=== PATIENT | female | born 1980 | race Caucasian/White ===

== ENCOUNTER 2016-12-24 20:37 | Inpatient (IN) | payer BC ==
--- NOTE | ~2016-12-24 | DS ---
Discharge Summary [place] [address] [facility] [place]. [address] NAME: ROBI DSOUZA : 76 STATUS : ADM IN PAT#: [id number] AGE: 36 ADM/REG DATE : 12/24/16 MR#: [id number] REPORT SERV DATE: 12/28/16 DICTATED BY: SAWYER DOLL DATE: 12/28/16 REPORT STATUS : Draft TRANSCRIBED BY: MODL DATE: 12/28/16 ADMISSION DATE: 12/24/2016 DISCHARGE DATE: 12/28/2016 FINAL HOSPITAL DIAGNOSIS: 1. Crohn's disease. 2. Clostridium difficile, recurrent. CONSULTATIONS: GI. PROCEDURES: CT scan of the abdomen and pelvis done on the showing abnormal small bowel pattern with several segments of dilated fluid-filled small bowel, lower mid abdomen and upper pelvis with transition zone to smaller caliber distal ileum, right lower quadrant abdomen, surrounding infiltration and small bowel mesentery suggesting partial obstruction in the area of inflammatory small bowel disease with possible small-bowel stricture possibly related to the patient's known Crohn's disease. CURRENT PHYSICAL FINDINGS AND HISTORY OF PRESENT ILLNESS: Please see initial H and P by Dr. Henson. In brief, the patient is a 36-year-old female with Crohn's disease, presented with complaint of abdominal pain and diarrhea. Vitals at the time of admission, Blood pressure was 132/60. She has had no temperature during her hospital stay. Heart rates have been in the 60s to 70s. LAB WORK: She presented with a procalcitonin of less than 0.05. BNP was unremarkable. LFTs were unremarkable. Lipase was 131. C-reactive protein was 13.9. Lactate was 0.9 and 0.3 on the and . HCG was negative. Initial white count was 14,000. Urinalysis was unremarkable. Stool culture was requested on the . It was positive for C. difficile. HOSPITAL COURSE: The patient was admitted. It was initially felt she had an exacerbation of her Crohn's disease. GI was consulted. Serial lab was ordered. Home medications were reviewed and ordered appropriately. She was placed on electrolyte protocol. She was started on a clear liquid diet and Solu-Medrol was initiated. IV fluids were titrated and serial labs were followed. When the patient was seen on the by GI, additional lab work including inflammatory markers was requested. On the evening of the , her stool sample came back positive C. difficile. She has had this in the past. She was started on antibiotics vancomycin p.o. The following day, her Solu-Medrol was discontinued and her diet was advanced. Her IV fluids were stopped on the . On the , the patient was re- evaluated. She was having 2 to 3 bowel movements a day and she was tolerating p.o. well. She was having no abdominal pain, nausea, vomiting and she was felt stable for discharge. DISPOSITION: Pending approval by GI and arrangement of followup with them. She will be discharged home. We will clarify if she should be on a prolonged taper given her recurrent immunosuppression of the p.o. vancomycin. Appropriate prescription will be given. She will continue Imuran 250 one per day; baclofen 10 t.i.d., mesalamine 1.2 g tablets 4.8 g with supper; Protonix 40 one per day; Carafate 1 g b.i.d.; hydrochlorothiazide 25, Xanax 1 mg, and hydrocodone 10/325 q.6h. Phenergan p.r.n., and ProAir inhaler. She will not resume her Discharge Summary [address] [address] NAME: ROBI DSOUZA : 76 STATUS : ADM IN PAT#: [id number] AGE: 36 ADM/REG DATE : 12/24/16 MR#: [id number] REPORT SERV DATE: 12/28/16 DICTATED BY: SAWYER DOLL DATE: 12/28/16 REPORT STATUS : Draft TRANSCRIBED BY: MODL DATE: 12/28/16 Entocort or Humira which are currently on hold. TLF/MODL Sawyer Doll M.D. / [id number] CC: Noelle Matthew M.D.
--- NOTE | ~2016-12-24 | HP ---
History And Physical [address] [address] NAME: ROBI DSOUZA : 76 STATUS : ADM IN PAT#: [id number] AGE: 36 ADM/REG DATE : 12/24/16 MR#: [id number] REPORT SERV DATE: 12/25/16 DICTATED BY: JUWAN FRANCO DATE: 12/24/16 REPORT STATUS : Draft TRANSCRIBED BY: MODL DATE: 12/24/16 DATE OF ADMISSION: 12/24/2016 CHIEF COMPLAINT: Abdominal pain with intractable nausea and vomiting. HISTORY OF PRESENT ILLNESS: This is a 36-year-old lady with history of Crohn's disease, who follows closely with Dr. Dover, presenting with abdominal pain, nausea, vomiting, and diarrhea. The patient reports that she was doing relatively fine up until three days ago when she started developing abdominal pain. Shortly thereafter, the patient started having nausea with vomiting, and the patient has not been able to keep any food down in the past couple of days. The patient also had lots of diarrhea which is unusual for her Crohn's flare episodes. The patient thus decided to come to the ER for further evaluation and care. The patient, otherwise denies having had any fevers or chills. In the ER, the patient was found to be afebrile and hemodynamically stable. Initial lab evaluation was actually all very benign except for a white blood cell count of 14.1. CT of the abdomen and pelvis showed findings consistent with some acute inflammatory bowel disease flare up in the distal ilium with partial small-bowel obstruction changes. Dr. Doty, who was on-call for Dr. Dover, was consulted, per ER, who recommended admitting the patient and for further care. Dr. Doty recommended against use of steroids or any antibiotics until she is evaluated by Dr. Dover. REVIEW OF SYSTEMS: The patient has not had any fevers or chills. Also, 14-point review of systems reviewed and negative other than mentioned above. MEDICATIONS: The list is still pending at this time. ALLERGIES: 1. SILK TAPE. 2. NSAIDS. 3. SULFA. 4. ASPIRIN. 5. IBUPROFEN. 6. ZOFRAN. 7. MUSHROOM. PAST MEDICAL HISTORY: 1. Crohn's disease, she follows with Dr. Dover and it sounds like the patient is on multiple immunomodulating therapy for her Crohn's. Unfortunately, Crohn's disease has been complicated with the patient requiring multiple surgeries in the past related to Crohn's. 2. Obstructive sleep apnea, noncompliant with CPAP therapy. 3. Asthma. 4. Degenerative disk disease and chronic back pain. 5. Hiatal hernia and GERD. History And Physical [address] [place]. [address] NAME: ROBI DSOUZA : 78 STATUS : ADM IN PAT#: [id number] AGE: 36 ADM/REG DATE : 12/24/16 MR#: [id number] REPORT SERV DATE: 12/25/16 DICTATED BY: JUWAN FRANCO DATE: 12/24/16 REPORT STATUS : Draft TRANSCRIBED BY: FRANKIE DATE: 12/24/16 PAST SURGICAL HISTORY: 1. Cholecystectomy. 2. Hysterectomy. 3. . 4. Abdominal surgeries related to abscess formation from Crohn's in the past. FAMILY HISTORY: 1. CVAs. 2. Crohn's. 3. Heart diseases. SOCIAL HISTORY: The patient does smoke about half a pack of cigarettes on daily basis. The patient otherwise does not drink alcohol or use any illicit drugs. The patient lives at home with her boyfriend and her son. The patient's boyfriend is at bedside here in the ER. PHYSICAL EXAMINATION: VITAL SIGNS: Temperature 98.0, Blood pressure 118/74, pulse 87, respiratory rate is 16, and saturating 98% on room air. NEUROLOGIC: The patient is alert and oriented x3, with no focal neurologic deficits. GENERAL: The patient is awake, does not appear to be in acute distress, and she is cooperative. NECK: No JVD. No lymphadenopathy. Normal thyroid. CHEST: No midline sternotomy scar and no tenderness to palpation. LUNGS: Clear to auscultation bilaterally with normal respiratory effort on room air. CARDIOVASCULAR: Regular rate and rhythm with no murmurs, rubs, or gallops, and PMI is nondisplaced. ABDOMEN: Soft, but diffusely tender to palpation. Otherwise, active bowel sounds and no organomegaly. EXTREMITIES: No edema. Normal distal pulses. No calf tenderness. SKIN: Clean, dry, warm, and intact. LABORATORY DATA: Sodium is 140, potassium 3.6, chloride 108, BUN 12, creatinine 0.81, glucose 97, calcium 8.8. LFTs and lipase are within normal limits. White blood cell count is 14.1, hemoglobin 15.4, platelets 320. Lactate is 0.9. CT of the abdomen and pelvis revealed her findings consistent with acute exacerbation of inflammatory bowel disease in the distal ilium with partial small-bowel obstruction. It also showed some chronic stricture in the distal small bowel. ASSESSMENT: This is a 36-year-old lady with history of Crohn's disease presenting with a Crohn's flare. 1. Crohn's flare. 2. Partial small-bowel obstruction, related to above. 3. Nausea and vomiting with diarrhea. 4. Smoking. 5. Asthma. History And Physical [address] [address] NAME: ROBI DSOUZA : 76 STATUS : ADM IN [facility]#: [id number] AGE: 36 ADM/REG DATE : 12/24/16 MR#: [id number] REPORT SERV DATE: 12/25/16 DICTATED BY: JUWAN FRANCO DATE: 12/24/16 REPORT STATUS : Draft TRANSCRIBED BY: FRANKIE DATE: 12/24/16 6. Obstructive sleep apnea. PLAN: My plan is to admit the patient under telemetry monitoring. The patient will be given IV fluid resuscitation. Otherwise, the patient will be given mainly supportive care with antiemetics and pain control. I will check C. diff, procalcitonin level, as well as daily labs to include CBC and electrolytes. As per GIs recommendations, the patient will not be started on any antibiotics or steroids until she is evaluated by Dr. Dover in the morning. The patient is currently very hemodynamically stable. For smoking cessation, counseling was provided. Otherwise, for the rest of stable past medical conditions including asthma, obstructive sleep apnea, et al., I will continue home medications. Standard DVT prophylaxis. The patient is full code at this time. C/FRANKIE Juwan Franco MD / [id number] CC: Noelle Barbosa M.D. Richard Sadowitz, M.D.
[2016-12-24 17:21] LABS: BASOPHILS 0.1 %; BASOPHILS ABSOLUTE 0.02 10/3/uL (0.0-0.16); EOSINOPHILS 1.3 %; EOSINOPHILS ABSOLUTE 0.18 10/3/uL (0.0-0.53); HEMATOCRIT 45.5 % (36.0-48.0); HEMOGLOBIN 15.4 g/dL (12.0-16.0); IMMATURE GRANULOCYTES 0.4 %; IMMATURE GRANULOCYTES ABSOLUTE 0.06 10/3/uL (0.0-0.11); LYMPHOCYTES 20.1 %; LYMPHOCYTES ABSOLUTE 2.82 10/3/uL (0.67-4.30); MANUAL DIFF NO %; MEAN CORPUS HGB CONC 33.8 g/dL (32.0-36.0); MEAN CORPUSCULAR HEMOGLOB 30.9 pg (26.0-34.0); MEAN CORPUSCULAR VOLUME 91.2 fL (80-100); MEAN PLATELET VOLUME 11.4 fL (9.2-13.0); MONOCYTES 6.3 %; MONOCYTES ABSOLUTE 0.88 10/3/uL (0.21-1.20); NEUTROPHILS 71.8 %; PLATELET COUNT 320 10/3/uL (150-400); RBC DISTRIBUTION WIDTH 16.2 % (12.0-16.0); RED CELL COUNT 4.99 10/6/uL (4.0-5.6); WHITE BLOOD CELLS 14.1 10/3/uL (4.5-10.5)
[2016-12-24 17:35] LABS: A/G RATIO 0.8 (0.7-1.9); ALBUMIN 3.5 G/DL (3.5-5.0); ALKALINE PHOSPHATASE 57 U/L (45-117); BUN (BLOOD UREA NITROGEN) 12 MG/DL (6-23); CALCIUM, SERUM 8.8 MG/DL (8.5-10.4); CHLORIDE, SERUM 108 MMOL/L (96-112); CO2 (CARBON DIOXIDE) 22 MMOL/L (24-34); CREATININE 0.81 MG/DL (0.55-1.02); GFR AFRICAN AMERICAN 107 ML/MIN (>=60); GFR NON AFRICAN AMERICAN 92 ML/MIN (>=60); GLOBULIN 4.2 G/DL (2.5-4.1); GLUCOSE, SERUM 97 MG/DL (60-99); POTASSIUM, SERUM 3.6 MMOL/L (3.5-5.3); SGOT(AST) 12 U/L (5-40); SGPT(ALT) 18 U/L (5-65); SODIUM, SERUM 140 MMOL/L (135-148); TOTAL BILIRUBIN 0.7 MG/DL (0-1.2); TOTAL PROTEIN 7.7 G/DL (6.0-8.5)
[2016-12-24 17:49] LABS: LACTATE 0.9 MMOL/L (0.3-2.4)
[~2016-12-24 20:37] MED LIST: ACET500CAP PO; ASACOL PO; BENTYL10 PO; CIP2 PO; CIP5 PO; DIL4TAB PO; ENTOCORT3 PO; FLAG500TAB PO; FLEX PO; HCTZ25B PO; HUMIRA PEN SC; HUMIRA SC; HYDROCHLOROT25 MG PO; IMU PO; KLOR-CON 1010 MEQ PO; L40 PO; LEVAQUIN750 MG PO; LIALDA1.2 GM PO; LIOR10 PO; LORTAB10 PO; MEDROLPAK4; NORCO1 TAB PO; P10 PO; P20 PO; P5 PO; PR12.5 PO; PR25 PO; PROAIR HFA INH; PROTONIX PO; SUCR PO; VANCOCIN HCL125 MG PO; VENTOLIN HFA INH; XANAX1 MG PO; ZANTAC 150 PO
[2016-12-24 20:54] LABS: WBC (NOT ORDERED) (RFLEX) 0 (0-5)
[2016-12-24 21:03] LABS: ASCORBIC ACID (UR NOT ORDER) NEG (NEG); BILIRUBIN, URINE NEGATIVE (NEG); ER URINALYSIS TAT 0 Hrs 10 Mins; KETONE, URINE NEGATIVE (NEG); LEUKOCYTE ESTERASE(NOT OR NEG (NEG); NITRITE (URINE) NEG (NEG)
[2016-12-24 22:46] LABS: PROCALCITONIN <0.05 ng/mL (<0.5)
[2016-12-25 08:02] LABS: BASOPHILS 0.3 %; BASOPHILS ABSOLUTE 0.03 10/3/uL (0.0-0.16); EOSINOPHILS 1.7 %; EOSINOPHILS ABSOLUTE 0.16 10/3/uL (0.0-0.53); HEMOGLOBIN 13.2 g/dL (12.0-16.0); IMMATURE GRANULOCYTES 0.5 %; IMMATURE GRANULOCYTES ABSOLUTE 0.05 10/3/uL (0.0-0.11); LYMPHOCYTES ABSOLUTE 2.48 10/3/uL (0.67-4.30); MEAN CORPUS HGB CONC 33.1 g/dL (32.0-36.0); MEAN CORPUSCULAR HEMOGLOB 29.9 pg (26.0-34.0); MEAN CORPUSCULAR VOLUME 90.5 fL (80-100); MEAN PLATELET VOLUME 11.3 fL (9.2-13.0); MONOCYTES ABSOLUTE 0.55 10/3/uL (0.21-1.20); NEUTROPHILS 64.5 %; NEUTROPHILS ABSOLUTE 5.93 10/3/uL (2.02-8.40); PLATELET COUNT 268 10/3/uL (150-400); RBC DISTRIBUTION WIDTH 16.1 % (12.0-16.0); RED CELL COUNT 4.41 10/6/uL (4.0-5.6); WHITE BLOOD CELLS 9.2 10/3/uL (4.5-10.5)
[2016-12-25 08:03] LABS: HEMATOCRIT 39.9 % (36.0-48.0); MANUAL DIFF NO %
[2016-12-25 08:12] LABS: BUN (BLOOD UREA NITROGEN) 12 MG/DL (6-23); CHLORIDE, SERUM 111 MMOL/L (96-112); CO2 (CARBON DIOXIDE) 23 MMOL/L (24-34); CREATININE 0.64 MG/DL (0.55-1.02); GFR AFRICAN AMERICAN 131 ML/MIN (>=60); GFR NON AFRICAN AMERICAN 113 ML/MIN (>=60); GLUCOSE, SERUM 94 MG/DL (60-99); POTASSIUM, SERUM 3.5 MMOL/L (3.5-5.3); SODIUM, SERUM 142 MMOL/L (135-148)
[2016-12-25 08:13] LABS: CALCIUM, SERUM 7.8 MG/DL (8.5-10.4)
[2016-12-26 05:28] LABS: BASOPHILS 0 %; EOSINOPHILS 0 %; HEMATOCRIT 40.4 % (36.0-48.0); HEMOGLOBIN 13.7 g/dL (12.0-16.0); IMMATURE GRANULOCYTES 0.3 %; IMMATURE GRANULOCYTES ABSOLUTE 0.04 10/3/uL (0.0-0.11); LYMPHOCYTES 6.4 %; LYMPHOCYTES ABSOLUTE 0.77 10/3/uL (0.67-4.30); MEAN CORPUS HGB CONC 33.9 g/dL (32.0-36.0); MEAN CORPUSCULAR HEMOGLOB 30.7 pg (26.0-34.0); MEAN CORPUSCULAR VOLUME 90.6 fL (80-100); MEAN PLATELET VOLUME 11.8 fL (9.2-13.0); MONOCYTES 0.9 %; MONOCYTES ABSOLUTE 0.11 10/3/uL (0.21-1.20); NEUTROPHILS 92.4 %; NEUTROPHILS ABSOLUTE 11.19 10/3/uL (2.02-8.40); PLATELET COUNT 285 10/3/uL (150-400); RBC DISTRIBUTION WIDTH 15.5 % (12.0-16.0); RED CELL COUNT 4.46 10/6/uL (4.0-5.6); WHITE BLOOD CELLS 12.1 10/3/uL (4.5-10.5)
[2016-12-26 05:29] LABS: MANUAL DIFF NO %
[2016-12-26 05:40] LABS: CALCIUM, SERUM 8.5 MG/DL (8.5-10.4); CHLORIDE, SERUM 112 MMOL/L (96-112); CO2 (CARBON DIOXIDE) 19 MMOL/L (24-34); CREATININE 0.46 MG/DL (0.55-1.02); GFR AFRICAN AMERICAN 146 ML/MIN (>=60); GFR NON AFRICAN AMERICAN 126 ML/MIN (>=60); POTASSIUM, SERUM 3.7 MMOL/L (3.5-5.3); SODIUM, SERUM 141 MMOL/L (135-148)
[2016-12-26 05:45] LABS: BUN (BLOOD UREA NITROGEN) 8 MG/DL (6-23); GLUCOSE, SERUM 139 MG/DL (60-99)
[2016-12-28] MEDS ORDERED: VANCOCIN HCL125 MG PO (14:07)
== END 2016-12-28 14:42 | disposition home or self-care (01) | DRG 386 ==
LOC: ER 20:37 → 5NO 20:39 → 4SO 12-25 15:55
PROVIDERS: Emergency Medicine; Internal Medicine; Nurse Practitioner
DX: K50.012 Crohn's disease of small intestine with intestinal obstruction (principal); A04.7 Enterocolitis due to Clostridium difficile; F17.210 Nicotine dependence, cigarettes, uncomplicated; J45.909 Unspecified asthma, uncomplicated; G47.33 Obstructive sleep apnea (adult) (pediatric); K21.9 Gastro-esophageal reflux disease without esophagitis; Z91.19 Patient's noncompliance with other medical treatment and regimen
CPT/HCPCS: 74020; 74176; 80048; 80053; 81001; 83605; 83690; 84145; 84703; 85025; 85652; 86140; 87493; 87493-59; 96374; 96375; 96376; 99285; A9270-GY; J1170; J2405; J2550; J2930; J7500

== ENCOUNTER 2017-02-23 19:16 | Inpatient (IN) | payer BC ==
--- NOTE | ~2017-02-23 | HP ---
History And Physical [place] [id number] [facility] [place]. [address] NAME: ROBI JIMENEZ : 76 STATUS : ADM Benjamin PAT#: [id number] AGE: 36 ADM/REG DATE : 02/23/17 MR#: [id number] REPORT SERV DATE: 02/24/17 DICTATED BY: MATT HAMLIN DATE: 02/23/17 REPORT STATUS : Draft TRANSCRIBED BY: MODL DATE: 02/23/17 DATE OF ADMISSION: 02/23/2017 CHIEF COMPLAINT: Abdominal pain and anorexia. HISTORY OF PRESENT ILLNESS: This is a 36-year-old female with a history of known Crohn disease, on treatment, followed by Dr. Dover, history of recurrent Clostridium difficile colitis in the past and other comorbid conditions, who presents to the emergency room at [facility] with the above-mentioned complaint. History is obtained from the patient and reviewing data available on the [employer]. According to the patient, she had been in her usual state of health until about a week ago when she started having abdominal pain which was diffuse involving her entire lower abdomen and epigastric region as well. Her pain was not associated with any fevers or chills. She denied any bleeding from anywhere including hematemesis or hematochezia. She did not have any nausea or vomiting. During the course of the week, she thought she was having a flare up of her Crohn disease, but despite continuing her medications and being compliant with it, she continued to get worse and she finally decided to come to the emergency room to be evaluated. In the emergency room, initial workup revealed she had a flare-up of her Crohn disease and a CT scan of her abdomen and pelvis showed partial small bowel obstruction with flare-up of her Crohn disease as well. Hospitalist Service is asked to admit her for further evaluation and treatment. At the time of my evaluation, Mrs. Jimenez denied any chest pain or palpitations. She had no orthopnea. She did not have a cough, hemoptysis, night sweats, or weight loss. No history of recent falls or loss of consciousness. No history of fevers or chills. She had some slight nausea, but without any vomiting or diarrhea. No history of hematemesis, hematochezia, or hematuria. No other history of recent travel or exposures other than those mentioned above. 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 She is on Humira and mesalamine. 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 SOCIAL HISTORY: She has about a 40- to 50-pack year history of smoking and continues to do so. Denies alcohol use or recreational drug use. She is disabled due to her Crohn disease. FAMILY HISTORY: Noncontributory. MEDICATIONS: Her medications at home were reviewed by me in the chart today and reordered by me. REVIEW OF SYSTEMS: History And Physical [address] [address] NAME: ROBI JIMENEZ : 76 STATUS : ADM Benjamin PAT#: [id number] AGE: 36 ADM/REG DATE : 02/23/17 MR#: [id number] REPORT SERV DATE: 02/24/17 DICTATED BY: MATT HAMLIN DATE: 02/23/17 REPORT STATUS : Draft TRANSCRIBED BY: FRANKIE DATE: 02/23/17 As in history of present illness. All other systems were reviewed in detail and quite unremarkable. PHYSICAL EXAMINATION: GENERAL: This is a pleasant 36-year-old, not in any acute distress. She is alert, awake, oriented to time, place, and person. HEENT: Her head is atraumatic and normocephalic. Her pupils are equal, reacting to light and accommodating. External ocular muscles are intact. Membranes are moist and pink. Sclerae are nonicteric. NECK: Supple with no jugular venous distention, lymphadenopathy, or thyromegaly. LUNGS: Clear to auscultation with no wheezes, rubs, or crackles. HEART: Heart sounds were regular with no murmurs, rubs, or gallops. ABDOMEN: Soft and nontender. Bowel sounds are present. EXTREMITIES: Showed no cyanosis, clubbing, or edema. NEUROLOGIC: Grossly intact. No focal sensory or motor deficits. Higher functions appeared intact. VITAL SIGNS: Her vital signs today showed a temperature of 97.9, pulse 145, respirations 18 a minute, blood pressure was 123/90, and oxygen saturations were 97%, breathing 2 liters of oxygen via nasal cannula. LABORATORY DATA: Reviewed on the [employer] showed normal CMP with a blood glucose of 99. AST, ALT, and alkaline phosphatase were within normal limits. Lipase was 159. CBC showed a white blood cell count of 11,900, hemoglobin was 16.5, hematocrit 47.7, and platelet count was 292,000. Urinalysis showed trace leukocyte esterase and nitrite was negative. There were 10 wbc's and occasional bacteria. Films of the CT scan of her abdomen and pelvis were reviewed by me on the PACS today and interpreted by me. Official Radiology report was also reviewed. There is partial small bowel obstruction with Crohn's flare up as well. Please see report for details. IMPRESSION: 1. Partial small bowel obstruction. 2. Abdominal pain. 3. Urinary tract infection. 4. Dehydration. 5. Crohn disease with flare up. 6. Hiatal hernia. 7. Peptic ulcer disease. 8. Recurrent Clostridium difficile colitis. PLAN: We will admit Mrs. Jimenez to the Hospitalist Service with Med/Surg Tele Floor for a 24- hour observation period. We will keep her n.p.o. for now due to her partial small bowel obstruction, decompress if necessary, but for now she is fine. We will start her on pain control as needed and also IV fluids for hydration. We will go ahead and consult Gastroenterology Service with Dr. Dover to see her in the morning. We will also place her on intravenous steroids for now. We will obtain cultures, start her on empiric antibiotics after we check her stool for C. diff colitis. We will place her on SCDs for DVT prophylaxis while here. I have discussed the above plans with the patient, her questions History And Physical [address] [address] NAME: ROBI JIMENEZ LOGAN : 76 STATUS : ADM Benjamin PAT#: [id number] AGE: 36 ADM/REG DATE : 02/23/17 MR#: [id number] REPORT SERV DATE: 02/24/17 DICTATED BY: MATT HAMLIN DATE: 02/23/17 REPORT STATUS : Draft TRANSCRIBED BY: FRANKIE DATE: 02/23/17 were answered, and she is agreeable to the above recommendations. Further recommendations will follow after Dr. Dover has had a chance to see her in the morning. /FRANKIE Matt Hamiln M.D. / [id number] CC: MD Chris Smith M.D.
--- NOTE | ~2017-02-23 | DS ---
Discharge Summary [place] [address] [place]. [address] NAME: ROBI DSOUZA : 76 STATUS : DIS Benjamin PAT#: [id number] AGE: 36 ADM/REG DATE : 02/23/17 MR#: [id number] REPORT SERV DATE: 02/27/17 DICTATED BY: HALEY VILLANUEVA DATE: 02/26/17 REPORT STATUS : Draft TRANSCRIBED BY: MODL DATE: 02/26/17 ADMISSION DATE: 02/23/2017 DISCHARGE DATE: 02/26/2017 REASON FOR ADMISSION: Abdominal pain and concern for partial small bowel obstruction. HPI: Please refer to Dr. Kasper's history and physical dated 02/24/2017 for complete details regarding the patient's admission. In brief, the patient was admitted to the Hospice Service for concern of a partial small bowel obstruction. HOSPITAL COURSE: The patient had an uncomplicated hospital course. She had a CT scan of the abdomen and pelvis without contrast done in the ER which showed thickened terminal ilium with prominent submucosal fat planes consistent with sequela of known Crohn's disease. There was transition from mildly dilated mid to distal small bowel to the small caliber terminal ilium suggesting a moderate grade partial small bowel obstruction. The patient was recently discharged with recurrent C. diff colitis and has been on a tapering dose of her vancomycin. She did not have any diarrhea when she presented to the hospital. She was having formed stool. Then, she had an episode of diarrhea, and then a C. diff sample was collected which then showed C. diff. She had already been started on her tapering dose of vancomycin to complete the course on admission. Surprisingly enough given her CAT scan findings, she did not behave like she had a partial small bowel obstruction, and she was ambulating the halls, going out to smoke a cigarette and eating food just fine. She did complain of a little bit of crampy abdominal pain. We continued her oral vancomycin which she tolerated. Followup KUB showed resolving partial bowel obstruction. She did not require an NG tube, and she never had any nausea or vomiting. She was tolerating food very well. She has reached maximal hospitalization. She will be discharged home in stable condition. DISCHARGE DIAGNOSES: Possible partial small bowel obstruction, now resolved. Recurrent C. diff colitis on a tapering dose of vancomycin. Crohn's disease with a flare with exacerbation. Hiatal hernia. Peptic ulcer disease. No urinary tract infection. Chronic pain dependent on narcotics. PROCEDURES: Include CT scan of the abdomen and pelvis. DISCHARGE MEDICATIONS: Include Imuran 250 mg with supper, mesalamine 4.8 g with supper, Protonix 40 mg daily, Carafate 1 g twice a day, baclofen p.r.n., hydrochlorothiazide p.r.n. edema, vancomycin 125 mg p.o. 1 tablet every other day for seven days, prednisone 40 mg once a day for the next three days, Xanax p.r.n. anxiety, [place] 10/325 mg three times a day p.r.n. pain, Phenergan p.r.n., albuterol p.r.n., and Humira 40 mg subcu every other week by Dr. Dover office. I spent over 30 minutes in discharge plan and coordination of care. Discharge Summary [address] [address] NAME: ROBI DSOUZA : 76 STATUS : DIS Benjamin PAT#: [id number] AGE: 36 ADM/REG DATE : 02/23/17 MR#: [id number] REPORT SERV DATE: 02/27/17 DICTATED BY: HALEY VILLANUEVA DATE: 02/26/17 REPORT STATUS : Draft TRANSCRIBED BY: FRANKIE DATE: 02/26/17 JACKY Haley Villanueva MD / [id number] CC: Noelle Ariza M.D.
[2017-02-23 19:51] LABS: BASOPHILS 0.3 %; BASOPHILS ABSOLUTE 0.03 10/3/uL (0.0-0.16); EOSINOPHILS 0.8 %; EOSINOPHILS ABSOLUTE 0.09 10/3/uL (0.0-0.53); IMMATURE GRANULOCYTES 0.4 %; IMMATURE GRANULOCYTES ABSOLUTE 0.05 10/3/uL (0.0-0.11); LYMPHOCYTES 16.9 %; LYMPHOCYTES ABSOLUTE 2.01 10/3/uL (0.67-4.30); MEAN CORPUS HGB CONC 34.6 g/dL (32.0-36.0); MEAN CORPUSCULAR HEMOGLOB 31.6 pg (26.0-34.0); MEAN CORPUSCULAR VOLUME 91.4 fL (80-100); MEAN PLATELET VOLUME 11.8 fL (9.2-13.0); MONOCYTES 7.7 %; MONOCYTES ABSOLUTE 0.92 10/3/uL (0.21-1.20); NEUTROPHILS 73.9 %; NEUTROPHILS ABSOLUTE 8.79 10/3/uL (2.02-8.40); PLATELET COUNT 292 10/3/uL (150-400); RBC DISTRIBUTION WIDTH 14.8 % (12.0-16.0); RED CELL COUNT 5.22 10/6/uL (4.0-5.6); WHITE BLOOD CELLS 11.9 10/3/uL (4.5-10.5)
[2017-02-23 19:52] LABS: HEMATOCRIT 47.7 % (36.0-48.0); HEMOGLOBIN 16.5 g/dL (12.0-16.0); MANUAL DIFF NO %
[2017-02-23 19:54] LABS: ASCORBIC ACID (UR NOT ORDER) 20 (NEG); BILIRUBIN, URINE MODERATE (NEG); ER URINALYSIS TAT 0 Hrs 13 Mins; KETONE, URINE TRACE MG/DL (NEG); LEUKOCYTE ESTERASE(NOT OR TRACE (NEG); NITRITE (URINE) NEG (NEG); WBC (NOT ORDERED) (RFLEX) 10 (0-5)
[2017-02-23 20:07] LABS: ALKALINE PHOSPHATASE 62 U/L (45-117); BUN (BLOOD UREA NITROGEN) 9 MG/DL (6-23); CHLORIDE, SERUM 104 MMOL/L (96-112); CREATININE 0.84 MG/DL (0.55-1.02); GFR AFRICAN AMERICAN 102 ML/MIN (>=60); GFR NON AFRICAN AMERICAN 88 ML/MIN (>=60); GLOBULIN 4.1 G/DL (2.5-4.1); SGPT(ALT) 10 U/L (5-65); SODIUM, SERUM 139 MMOL/L (135-148); TOTAL PROTEIN 8.1 G/DL (6.0-8.5)
[2017-02-23 20:08] LABS: CALCIUM, SERUM 10.1 MG/DL (8.5-10.4); CO2 (CARBON DIOXIDE) 29 MMOL/L (24-34); GLUCOSE, SERUM 99 MG/DL (60-99); POTASSIUM, SERUM 3.8 MMOL/L (3.5-5.3); SGOT(AST) 22 U/L (5-40)
[2017-02-23] MEDS ORDERED: HUMIRA PEN SC (21:03)
[2017-02-24 02:56] LABS: ASCORBIC ACID (UR NOT ORDER) NEG (NEG); BILIRUBIN, URINE SMALL (NEG); KETONE, URINE TRACE MG/DL (NEG); LEUKOCYTE ESTERASE(NOT OR NEG (NEG); WBC (NOT ORDERED) (RFLEX) 6 (0-5)
[2017-02-24 07:13] LABS: BASOPHILS 0.1 %; BASOPHILS ABSOLUTE 0.01 10/3/uL (0.0-0.16); BUN (BLOOD UREA NITROGEN) 11 MG/DL (6-23); CHLORIDE, SERUM 109 MMOL/L (96-112); CREATININE 0.76 MG/DL (0.55-1.02); EOSINOPHILS 0 %; GFR AFRICAN AMERICAN 115 ML/MIN (>=60); GFR NON AFRICAN AMERICAN 100 ML/MIN (>=60); HEMOGLOBIN 14.3 g/dL (12.0-16.0); IMMATURE GRANULOCYTES 0.5 %; IMMATURE GRANULOCYTES ABSOLUTE 0.04 10/3/uL (0.0-0.11); LYMPHOCYTES 4.6 %; LYMPHOCYTES ABSOLUTE 0.39 10/3/uL (0.67-4.30); MEAN CORPUS HGB CONC 33.9 g/dL (32.0-36.0); MEAN CORPUSCULAR HEMOGLOB 31.4 pg (26.0-34.0); MEAN CORPUSCULAR VOLUME 92.5 fL (80-100); MEAN PLATELET VOLUME 11.7 fL (9.2-13.0); MONOCYTES 0.6 %; MONOCYTES ABSOLUTE 0.05 10/3/uL (0.21-1.20); NEUTROPHILS 94.2 %; NEUTROPHILS ABSOLUTE 8.02 10/3/uL (2.02-8.40); PLATELET COUNT 243 10/3/uL (150-400); POTASSIUM, SERUM 3.8 MMOL/L (3.5-5.3); RED CELL COUNT 4.56 10/6/uL (4.0-5.6); SODIUM, SERUM 141 MMOL/L (135-148); WHITE BLOOD CELLS 8.5 10/3/uL (4.5-10.5)
[2017-02-24 07:14] LABS: CO2 (CARBON DIOXIDE) 24 MMOL/L (24-34); GLUCOSE, SERUM 162 MG/DL (60-99); PHOSPHORUS, SERUM 1.7 MG/DL (2.5-4.5)
[2017-02-24 07:23] LABS: HEMATOCRIT 42.2 % (36.0-48.0); MANUAL DIFF NO %
[2017-02-25 06:56] LABS: BASOPHILS 0.1 %; BASOPHILS ABSOLUTE 0.01 10/3/uL (0.0-0.16); EOSINOPHILS 0.2 %; EOSINOPHILS ABSOLUTE 0.03 10/3/uL (0.0-0.53); HEMOGLOBIN 12.8 g/dL (12.0-16.0); IMMATURE GRANULOCYTES 0.5 %; IMMATURE GRANULOCYTES ABSOLUTE 0.08 10/3/uL (0.0-0.11); LYMPHOCYTES 9.7 %; LYMPHOCYTES ABSOLUTE 1.52 10/3/uL (0.67-4.30); MEAN CORPUS HGB CONC 33.9 g/dL (32.0-36.0); MEAN CORPUSCULAR HEMOGLOB 31.5 pg (26.0-34.0); MEAN CORPUSCULAR VOLUME 93.1 fL (80-100); MEAN PLATELET VOLUME 11.4 fL (9.2-13.0); MONOCYTES 5.5 %; MONOCYTES ABSOLUTE 0.86 10/3/uL (0.21-1.20); NEUTROPHILS ABSOLUTE 13.21 10/3/uL (2.02-8.40); PLATELET COUNT 234 10/3/uL (150-400); RBC DISTRIBUTION WIDTH 14.9 % (12.0-16.0); RED CELL COUNT 4.06 10/6/uL (4.0-5.6)
[2017-02-25 06:59] LABS: HEMATOCRIT 37.8 % (36.0-48.0); MANUAL DIFF NO %; WHITE BLOOD CELLS 15.7 10/3/uL (4.5-10.5)
[2017-02-25 07:21] LABS: BUN (BLOOD UREA NITROGEN) 10 MG/DL (6-23); CALCIUM, SERUM 8.5 MG/DL (8.5-10.4); CHLORIDE, SERUM 112 MMOL/L (96-112); CO2 (CARBON DIOXIDE) 26 MMOL/L (24-34); CREATININE 0.68 MG/DL (0.55-1.02); GFR AFRICAN AMERICAN 129 ML/MIN (>=60); GFR NON AFRICAN AMERICAN 111 ML/MIN (>=60); POTASSIUM, SERUM 3.4 MMOL/L (3.5-5.3); SGOT(AST) 15 U/L (5-40); SGPT(ALT) 12 U/L (5-65); SODIUM, SERUM 143 MMOL/L (135-148); TOTAL BILIRUBIN 0.6 MG/DL (0-1.2)
[2017-02-25 07:23] LABS: ALBUMIN 3.1 G/DL (3.5-5.0); ALKALINE PHOSPHATASE 45 U/L (45-117); GLUCOSE, SERUM 109 MG/DL (60-99); PHOSPHORUS, SERUM 2.5 MG/DL (2.5-4.5); TOTAL PROTEIN 6.1 G/DL (6.0-8.5)
[2017-02-26 07:21] LABS: HEMATOCRIT 35.9 % (36.0-48.0); MEAN CORPUS HGB CONC 33.4 g/dL (32.0-36.0); MEAN CORPUSCULAR HEMOGLOB 31.3 pg (26.0-34.0); MEAN CORPUSCULAR VOLUME 93.5 fL (80-100); MEAN PLATELET VOLUME 11.7 fL (9.2-13.0); PLATELET COUNT 236 10/3/uL (150-400); RBC DISTRIBUTION WIDTH 15.3 % (12.0-16.0); RED CELL COUNT 3.84 10/6/uL (4.0-5.6)
[2017-02-26 07:23] LABS: WHITE BLOOD CELLS 7.9 10/3/uL (4.5-10.5)
[2017-02-26 07:24] LABS: MANUAL DIFF YES %
[2017-02-26 07:36] LABS: A/G RATIO 0.9 (0.7-1.9); ALBUMIN 2.8 G/DL (3.5-5.0); ALKALINE PHOSPHATASE 38 U/L (45-117); BUN (BLOOD UREA NITROGEN) 7 MG/DL (6-23); CALCIUM, SERUM 8.4 MG/DL (8.5-10.4); CHLORIDE, SERUM 113 MMOL/L (96-112); CO2 (CARBON DIOXIDE) 25 MMOL/L (24-34); CREATININE 0.68 MG/DL (0.55-1.02); GFR AFRICAN AMERICAN 129 ML/MIN (>=60); GFR NON AFRICAN AMERICAN 111 ML/MIN (>=60); PHOSPHORUS, SERUM 2.3 MG/DL (2.5-4.5); SGPT(ALT) 10 U/L (5-65); SODIUM, SERUM 143 MMOL/L (135-148); TOTAL BILIRUBIN 0.5 MG/DL (0-1.2); TOTAL PROTEIN 5.8 G/DL (6.0-8.5)
[2017-02-26 07:37] LABS: GLUCOSE, SERUM 85 MG/DL (60-99); POTASSIUM, SERUM 3.9 MMOL/L (3.5-5.3); SGOT(AST) 25 U/L (5-40)
[2017-02-26 07:54] LABS: BAND NEUTROPHILS 1 %; LYMPHOCYTES 25 %; LYMPHOCYTES ABSOLUTE (CALC) 1.98 10/3/uL (0.67-4.30); MONOCYTES 3 %; MONOCYTES ABSOLUTE (CALC) 0.24 10/3/uL (0.21-1.20); NEUTROPHILS ABSOLUTE (CALC) 5.69 10/3/uL (2.02-8.40); PLATELET ESTIMATE ADQ (ADEQUATE); SEGMENTED NEUTROPHIL (0) 71 %; TOTAL NUCLEATED CELLS 100
[2017-02-26 07:55] LABS: RBC MORPHOLOGY NORM (NORMAL)
[2017-02-26] MEDS ORDERED: VANCOCIN HCL125 MG PO (12:23)
[2017-02-26] MEDS ORDERED: PREDNISONE PO (12:24)
[2017-02-26] MEDS ORDERED: NORCO1 TAB (12:25)
== END 2017-02-26 14:09 | disposition home or self-care (01) | DRG 372 ==
LOC: ER 19:16 → 5SO 21:44
PROVIDERS: Emergency Medicine; Internal Medicine; Internal Medicine Pulmonary Disease
DX: A04.7 Enterocolitis due to Clostridium difficile (principal); K50.012 Crohn's disease of small intestine with intestinal obstruction; K27.9 Peptic ulcer, site unspecified, unspecified as acute or chronic, without hemorrhage or perforation; F11.20 Opioid dependence, uncomplicated; K50.912 Crohn's disease, unspecified, with intestinal obstruction; K21.9 Gastro-esophageal reflux disease without esophagitis; G89.29 Other chronic pain; Z79.899 Other long term (current) drug therapy; G47.33 Obstructive sleep apnea (adult) (pediatric); F17.210 Nicotine dependence, cigarettes, uncomplicated; E86.0 Dehydration; D72.829 Elevated white blood cell count, unspecified; E66.9 Obesity, unspecified; Z91.19 Patient's noncompliance with other medical treatment and regimen; Z68.33 Body mass index [BMI] 33.0-33.9, adult; Z88.2 Allergy status to sulfonamides; Z88.6 Allergy status to analgesic agent; Z88.8 Allergy status to other drugs, medicaments and biological substances
CPT/HCPCS: 74000; 74176; 80048; 80053; 81001; 83605; 83690; 83735; 84100; 84132; 84145; 84703; 85025; 87040; 87493; 87493-59; 96361; 96374; 96375; 96376; 99284; A9270-GY; G0378; J1170; J2550; J2930; J7500